=== PATIENT | female | born 1980 | race Caucasian/White ===

== ENCOUNTER 2017-04-23 18:56 | Outpatient (CLI) | payer OTHER ==
[~2017-04-23 18:56] MED LIST: CHOL10002 PO; GLUC1CAP18 PO; GUAI1TAB PO; IBUP-1223 PO; OMEP10CA4 PO; PRED10TA PO; TORADOL PO
[2017-04-23 20:05] LABS: AMNI OBC PASS; AMNISURE NEGATIVE (NEGATIVE)
== END 2017-04-23 21:50 | disposition home or self-care (01) ==
LOC: MERGE 18:56 → LDOP 18:56
PROVIDERS: ATTEND Obstetrics & Gynecology
DX: O09.522 Supervision of elderly multigravida, second trimester (principal); O42.912 Preterm premature rupture of membranes, unspecified as to length of time between rupture and onset of labor, second trimester; Z3A.26 26 weeks gestation of pregnancy
CPT/HCPCS: 59025; 76815; 81001; 84112; 87086; 89060; 99201; G0463; Q0114

== ENCOUNTER 2017-05-13 12:03 | Emergency (ER) | payer OTHER ==
[~2017-05-13] VITALS: Ht 162.6 cm; Wt 88.3 kg
[2017-05-13 12:18] VITALS: BP 116/81
[2017-05-13] MEDS ORDERED: PRENATAL (12:46)
== END 2017-05-13 14:02 | disposition home or self-care (01) ==
LOC: ED 13:50
DX: O26.893 Other specified pregnancy related conditions, third trimester (principal); Z3A.29 29 weeks gestation of pregnancy; S29.012A Strain of muscle and tendon of back wall of thorax, initial encounter; M54.9 Dorsalgia, unspecified; G89.29 Other chronic pain; Z88.1 Allergy status to other antibiotic agents; Z88.0 Allergy status to penicillin; X58.XXXA Exposure to other specified factors, initial encounter; Y93.89 Activity, other specified; Y99.8 Other external cause status; Y92.89 Other specified places as the place of occurrence of the external cause
CPT/HCPCS: 71020; 99284

== ENCOUNTER 2017-07-17 14:26 | Outpatient (CLI) | payer OTHER ==
[~2017-07-17] VITALS: Ht 162.6 cm; Wt 90.0 kg
[~2017-07-17 14:26] MED LIST changes: +PRENATAL
[2017-07-17 14:31] VITALS: BP 122/66
== END 2017-07-17 15:32 | disposition home or self-care (01) ==
LOC: LDOP 14:26
PROVIDERS: ATTEND Student in an Organized Health Care Education/Training Program
DX: O09.523 Supervision of elderly multigravida, third trimester (principal); O26.893 Other specified pregnancy related conditions, third trimester; R10.9 Unspecified abdominal pain; Z3A.38 38 weeks gestation of pregnancy
CPT/HCPCS: 59025; 99211; G0463

== ENCOUNTER 2017-07-24 13:38 | Outpatient (CLI) | payer OTHER | END 2017-07-24 16:55 | disposition home or self-care (01) | LOC: LDOP 13:38 | PROVIDERS: ATTEND Student in an Organized Health Care Education/Training Program | DX: O09.523 Supervision of elderly multigravida, third trimester (principal); O26.893 Other specified pregnancy related conditions, third trimester; O42.92 Full-term premature rupture of membranes, unspecified as to length of time between rupture and onset of labor; O62.9 Abnormality of forces of labor, unspecified; R10.9 Unspecified abdominal pain; Z3A.39 39 weeks gestation of pregnancy | CPT/HCPCS: 59025; 89060; 99211; G0463; Q0114 ==

== ENCOUNTER 2017-07-27 08:11 | Inpatient (IN) | payer OTHER ==
[~2017-07-27] VITALS: Ht 162.6 cm; Wt 91.8 kg
[2017-07-28] MEDS: LACTATED RINGERS 1,000 ML IV SCH ×2 (01:00→02:17)
[2017-07-28] MEDS ORDERED: FENTANYL PF 100 MCG/2ML ONE (01:19)
[2017-07-28] MEDS ORDERED: MISOPROSTOL 200 MCG TABLET PR PRN (02:00)
[2017-07-28] MEDS ORDERED: CALCIUM CARBONATE 500 MG TAB.CHEW PO PRN (02:00)
[2017-07-28] MEDS ORDERED: ONDANSETRON 2MG/ML, 2ML IV PRN (02:00)
[2017-07-28] MEDS ORDERED: RHOGAM FROM BLOOD BANK 1 NOTE EA IM/IV ONE (02:00)
[2017-07-28] MEDS ORDERED: MAGNESIUM HYDROXIDE 8%, 30ML UDC PO PRN (02:00)
[2017-07-28] MEDS ORDERED: MEASLES,MUMPS&RUBELLA VACC/PF 0.5 ML SQ PRN (02:00)
[2017-07-28] MEDS ORDERED: DIPH,PERTUSS(ACELL),TET VAC/PF NC IM-VACC PRN (02:00)
[2017-07-28] MEDS ORDERED: IBUPROFEN 600 MG TABLET ONE (02:08)
[2017-07-28] MEDS ORDERED: OXYTOCIN 30U/ 0.9% NaCL 500ML 500 ML ONE (02:12)
[2017-07-28] MEDS: OXYTOCIN 30U/ 0.9% NaCL 500ML 500 ML IV SCH ×2 (02:14→11:59)
[2017-07-28] MEDS: IBUPROFEN 600 MG TABLET PO PRN ×3 (02:17→20:39)
[2017-07-28 02:23] VITALS: BP 117/77
[2017-07-28] MEDS ORDERED: FENTANYL PF 100 MCG/2ML IVPush PRN (02:30)
[2017-07-28] MEDS ORDERED: OXYTOCIN 30U/ 0.9% NaCL 500ML 500 ML IV ONE (02:37)
[2017-07-28 03:06] LABS: HEMATOCRIT 29.1 % (34.6-47.8); HEMOGLOBIN 9.7 g/dL (11.7-16.4); WHITE BLOOD COUNT 13.6 x10^3/uL (3.4-10)
[2017-07-28 03:45] VITALS: BP 132/84
[2017-07-28 08:52] VITALS: BP 122/86
[2017-07-28] MEDS: PRENATAL VIT/IRON/FA 1 EACH TABLET PO SCH (08:58)
[2017-07-28] MEDS: DOCUSATE 100 MG CAPSULE PO PRN (08:58)
[2017-07-28 09:54] LABS: HEMATOCRIT 30.5 % (34.6-47.8); HEMOGLOBIN 10.2 g/dL (11.7-16.4); WHITE BLOOD COUNT 16.6 x10^3/uL (3.4-10)
[2017-07-28 12:00] VITALS: BP 126/80
[2017-07-28] MEDS: NAPROXEN 500 MG TABLET PO PRN (13:22)
[2017-07-28 16:21] VITALS: BP 116/70
[2017-07-28 20:00] VITALS: BP 120/75
[2017-07-29] VITALS: BP 117/72
[2017-07-29] MEDS: NAPROXEN 500 MG TABLET PO PRN ×2 (03:46→11:16)
[2017-07-29] MEDS: DOCUSATE 100 MG CAPSULE PO PRN (08:28)
[2017-07-29] MEDS: PRENATAL VIT/IRON/FA 1 EACH TABLET PO SCH (09:00)
[2017-07-29 10:00] VITALS: BP 113/69
[2017-07-29] MEDS ORDERED: IBUP-1223 PO (11:06)
[2017-07-29] MEDS: IBUPROFEN 600 MG TABLET PO PRN (15:21)
== END 2017-07-29 16:33 | disposition home or self-care (01) | DRG 775 ==
LOC: LDIP 07-28 01:02 → 2NW 07-28 03:46
PROVIDERS: ADMIT Student in an Organized Health Care Education/Training Program; ATTEND Student in an Organized Health Care Education/Training Program
PROC: 10E0XZZ Delivery of Products of Conception, External Approach (ICD-10-PCS; principal; 2017-07-29)
PROC: 0KQM0ZZ Repair Perineum Muscle, Open Approach (ICD-10-PCS; 2017-07-29)
DX: O77.0 Labor and delivery complicated by meconium in amniotic fluid (principal); O70.1 Second degree perineal laceration during delivery; Z37.0 Single live birth; Z3A.38 38 weeks gestation of pregnancy
CPT/HCPCS: 36415; 82803; 85025; 86850; 86900; J3010; J2590; J7120

== ENCOUNTER → 2017-10-01 | Outpatient (CLI) | payer OTHER | END | disposition home or self-care (01) | LOC: CFH 08:49 | PROVIDERS: ATTEND Student in an Organized Health Care Education/Training Program | DX: N63.20 Unspecified lump in the left breast, unspecified quadrant (principal) | CPT/HCPCS: 77066 ==

== ENCOUNTER 2019-06-29 05:32 | Day surgery (SDC) | payer OTHER ==
[~2019-06-29] VITALS: Ht 162.6 cm; Wt 87.5 kg
[~2019-06-29 05:32] MED LIST changes: +ADAL20KI SQ; +MELO7.5T31 PO; +OMEP-110 PO; -OMEP10CA4 PO; +OMEP10CA5 PO; +POLY454P3 PO; +SECU150P SC
[2019-06-29] MEDS ORDERED: ACETAMINOPHEN 500 MG TABLET PO ONE (06:00)
[2019-06-29] MEDS ORDERED: LACTATED RINGERS 1,000 ML IV SCH ×2 (06:01→09:38)
[2019-06-29 06:16] VITALS: BP 127/88
[2019-06-29] MEDS ORDERED: EPINEPHRINE 1 MG/ML, 1ML ONE (06:36)
[2019-06-29] MEDS ORDERED: BUPIVACAINE/PF 0.5% ONE (06:36)
[2019-06-29 06:39] LABS: HCG UR SG 1.022 (1.003-1.030)
[2019-06-29] MEDS ORDERED: SCOPOLAMINE PATCH, 1.5MG PATCH.TD72 TD ONE (07:16)
[2019-06-29] MEDS ORDERED: MIDAZOLAM 1 MG/ML, 2ML ONE (07:23)
[2019-06-29] MEDS ORDERED: FENTANYL PF 250 MCG/5ML ONE (07:25)
[2019-06-29] MEDS ORDERED: DEXAMETHASONE 4 MG/ML, 1ML ONE (07:36)
[2019-06-29] MEDS ORDERED: ONDANSETRON 2MG/ML, 2ML ONE (07:36)
[2019-06-29] MEDS ORDERED: NEOSTIGMINE 1 MG/ML, 10ML ONE (07:36)
[2019-06-29] MEDS ORDERED: CEFAZOLIN 1,000 MG ONE (07:36)
[2019-06-29] MEDS ORDERED: GLYCOPYRROLATE 0.2MG/1ML, 5ML ONE (07:36)
[2019-06-29] MEDS ORDERED: PROPOFOL 10 MG/ML, 20ML ONE (07:36)
[2019-06-29] MEDS ORDERED: SUCCINYLCHOLINE 20 MG/ML, 10ML ONE (07:36)
[2019-06-29] MEDS ORDERED: ROCURONIUM 10MG/ML,5ML ONE (07:36)
[2019-06-29] MEDS ORDERED: LIDOCAINE-MPF 2% ,5ML ONE (07:39)
[2019-06-29] MEDS ORDERED: ACETAMINOPHEN 325 MG TABLET PO PRN (08:00)
[2019-06-29] MEDS ORDERED: PROMETHAZINE 25 MG SUPP PR PRN (08:00)
[2019-06-29] MEDS ORDERED: FENTANYL PF 100 MCG/2ML IV PRN (08:00)
[2019-06-29] MEDS ORDERED: PROMETHAZINE 25 MG/ML, 1ML IV PRN (08:00)
[2019-06-29] MEDS ORDERED: HYDROmorphone 2 MG/ML, 1ML IVPush PRN (08:00)
[2019-06-29] MEDS ORDERED: LORazepam 2 MG/ML, 1ML IVPush PRN (08:00)
[2019-06-29] MEDS ORDERED: ONDANSETRON ODT 8 MG PO PRN (08:00)
[2019-06-29] MEDS ORDERED: ONDANSETRON 2MG/ML, 2ML IV PRN (08:00)
[2019-06-29] MEDS ORDERED: OXYcodone 5 MG/5 ML ORAL.SOL UDC PO PRN (08:00)
[2019-06-29] MEDS ORDERED: KETOROLAC 30 MG/1 ML ONE (09:49)
[2019-06-29] MEDS ORDERED: KETOROLAC 30 MG/1 ML IVPush ONE (10:00)
[2019-06-29] MEDS ORDERED: FENTANYL PF 100 MCG/2ML ONE ×2 (10:09→10:19)
[2019-06-29] MEDS ORDERED: ACETAMINOPHEN 325 MG TABLET ONE (10:24)
[2019-06-29] MEDS ORDERED: ACETAMINOPHEN 650 MG/20.3 ML UDC ONE (10:24)
== END 2019-06-29 14:00 | disposition home or self-care (01) ==
LOC: OUT 05:32
PROVIDERS: ATTEND Obstetrics & Gynecology
DX: N94.6 Dysmenorrhea, unspecified (principal); N72 Inflammatory disease of cervix uteri; N80.3 Endometriosis of pelvic peritoneum; G43.909 Migraine, unspecified, not intractable, without status migrainosus; Z88.6 Allergy status to analgesic agent
CPT/HCPCS: 36415; 58301; 58571; 81025; 86850; 86900; 88307; J0171; J0330; J0690; J1100; J1885; J2250; J2405; J2704; J2710; J3010; J7120